=== PATIENT | male | born 1935 | race Caucasian/White ===

== ENCOUNTER → 2021-11-18 | Outpatient (CLI) | payer MEDICARE, OTHER ==
--- NOTE | 2021-11-18 08:48 | US ---
EXAMINATION TYPE: US kidneys/renal and bladder DATE OF EXAM: 11/18/2021 COMPARISON: NONE CLINICAL HISTORY: 86-year-old male I10 Htn N18.30 Chronic renal failure stage 3. TECHNIQUE: Multiple sonographic images of the kidneys and bladder are obtained. FINDINGS: EXAM MEASUREMENTS: Right Kidney: 9.0 x 4.7 x 4.6 cm Left Kidney: 9.7 x 4.5 x 4.5 cm Quality Assurance/R&D Lab Technician notes:technical limitations due to large amount of overlying bowel content Right Kidney: dilated collecting system Left Kidney: mild hydronephrosis Bladder: Prominent bladder wall trabeculations are noted. Small diverticula measuring up to 1.4 cm. P rostatomegaly up to 4.5 cm a prominent lobulated soft tissue impressing into the bladder base. Bilateral Jets seen: yes Incidental findin.6 cm gallstone. IMPRESSION: 1. Mild bilateral hydronephrosis, left greater than right. Correlate for possible etiology. Given pro statomegaly, consider BPH and bladder outlet obstruction. Both ureteral jets are visualized. 2. Trabeculated bladder wall and a small 1.4 cm bladder wall diverticulum. Findings suggest wall hype rtrophy from chronic bladder obstruction.
== END | disposition home or self-care (01) ==
LOC: RADUSWWP 07:59
PROVIDERS: ATTEND Family Medicine
DX: I12.9 Hypertensive chronic kidney disease with stage 1 through stage 4 chronic kidney disease, or unspecified chronic kidney disease (principal); N13.30 Unspecified hydronephrosis; N40.0 Benign prostatic hyperplasia without lower urinary tract symptoms; N32.89 Other specified disorders of bladder; N32.3 Diverticulum of bladder
CPT/HCPCS: 76770

== ENCOUNTER → 2021-12-16 | Outpatient (CLI) | payer MEDICARE, OTHER ==
[2021-12-16 09:44] LABS: Appearance,Urine Clear (Clear); Bilirubin,Urine Negative (Negative); Blood,Urine Negative (Negative); Color,Urine Yellow; Glucose,Urine (UA) Negative (Negative); Ketones,Urine Negative (Negative); Leukocyte Esterase,Urine Negative (Negative); Nitrite,Urine Negative (Negative); PH, Urine 6.5 (5.0-8.0); Protein,Urine Negative (Negative); Specific Gravity,Urine 1.018 (1.001-1.035); Urobilinogen,Urine <2.0 mg/dL (<2.0)
[2021-12-16 16:26] LABS: Basophils # (A) 0.06 X 10*3/uL (0.00-0.10); Basophils % (A) 0.8 %; Eosinophils # (A) 0.17 X 10*3/uL (0.04-0.35); Eosinophils % (A) 2.2 %; HCT 40.9 % (39.6-50.0); MCHC 31.8 g/dL (32.0-37.0); MCV 91.3 fL (80.0-97.0); Mean Platelet Volume 10.9 fL (9.5-12.2); Monocytes # (A) 0.93 X 10*3/uL (0.20-1.00); Monocytes % (A) 12.1 %; Neutrophils # (A) 5.16 X 10*3/uL (1.80-7.70); Neutrophils % (A) 67.4 %; Platelet Count 207 X 10*3/uL (140-440); RBC 4.48 X 10*6/uL (4.40-5.60); RDW 14.1 % (11.5-14.5); WBC 7.66 X 10*3/uL (4.50-10.00)
[2021-12-16 17:02] LABS: African American GFR (CKD) 44.5 (60.0-200.0); Albumin 4.1 g/dL (3.8-4.9); Albumin/Globulin Ratio 1.64 (1.60-3.17); Anion Gap 12.2 mmol/L (10.00-18.00); BUN/Creat Ratio 19.31 Ratio (12.00-20.00); Blood Urea Nitrogen 30.9 mg/dL (9.0-27.0); Calcium 9.6 mg/dL (8.7-10.3); Carbon Dioxide 24.8 mmol/L (20.0-27.5); Globulin 2.5 g/dL (1.6-3.3); Non-African American GFR(CKD) 38.4 (60.0-200.0); Phosphorus 3.4 mg/dL (2.4-5.1); Potassium 4.3 mmol/L (3.5-5.5); Total Bilirubin 0.5 mg/dL (0.30-1.20); Total Protein 6.6 g/dL (6.2-8.2)
== END | disposition home or self-care (01) ==
LOC: LABWHC1 08:32
PROVIDERS: ATTEND Nurse Practitioner Family
DX: N18.32 Chronic kidney disease, stage 3b (principal)
CPT/HCPCS: 36415; 80053; 81003; 84100; 85025

== ENCOUNTER → 2022-03-16 | Outpatient (CLI) | payer MEDICARE, OTHER ==
--- NOTE | 2022-03-16 16:40 | US ---
EXAMINATION TYPE: US kidneys/renal and bladder DATE OF EXAM: 03/16/2022 COMPARISON: Prior renal ultrasound November 18, 2021 CLINICAL HISTORY: N18.30 CKD STAGE 3. CKD 3 EXAM MEASUREMENTS: Right Kidney: 8.0 x 3.9 x 4.0 cm Left Kidney: 9.0 x 4.1 x 2.6 cm Right Kidney: No hydronephrosis or masses seen Left Kidney: No masses seen Bladder: Anechoic prominent prostate visualized. Bilateral Jets seen: No Mild to moderate Left-sided pyelocaliectasis on images saved. No nephrolithiasis is seen. No masses are identified. The urinary bladder is not greatly distended. Prominent prostate bulging on bladder base is noted. IMPRESSION: Suspect mild to moderate left-sided hydronephrosis. Consider follow-up imaging.
== END | disposition home or self-care (01) ==
LOC: RADUSWWP 15:42
PROVIDERS: ATTEND Internal Medicine Nephrology
DX: N18.30 Chronic kidney disease, stage 3 unspecified (principal)
CPT/HCPCS: 76770

== ENCOUNTER → 2022-05-01 | Outpatient (CLI) | payer MEDICARE, OTHER ==
--- NOTE | 2022-05-01 21:27 | CT ---
EXAMINATION TYPE: CT abdomen pelvis wo con DATE OF EXAM: 05/01/2022 COMPARISON: Ultrasound dated 03/16/2022 HISTORY: Stage [address] DLP: 596.2 mGycm Automated exposure control for dose reduction was used. TECHNIQUE: Helical acquisition of images was performed from the lung bases through the pelvis. FINDINGS: LUNG BASES: Loss of volume of the lower lobes with bilateral basal pulmonary peripheral reticulations and minimal fibrotic changes. Cardiomegaly. Mild coronary arterial atherosclerotic calcifications. LIVER/GB: No significant abnormality is appreciated. PANCREAS: No significant abnormality is seen. SPLEEN: No significant abnormality is seen. ADRENALS: No significant abnormality is seen. KIDNEYS: Suspected multiple variable sized bilateral renal cysts without gross suspicious feature, ma inly parapelvic in location. No definite suspicious renal lesion identified yet cannot be excluded by this nonenhanced CT scan. No hydroureter or hydronephrosis. FREE AIR: No free air is visualized RETROPERITONEAL ADENOPATHY: None visualized REPRODUCTIVE ORGANS: Enlarged prostate, please correlate with PSA level. Unremarkable seminal vesicle s. URINARY BLADDER: Trabeculated outline of the urinary bladder with left lateral wall diverticulum, pr obably representing sequela of chronic urinary outflow obstruction. PELVIC ADENOPATHY: No pathologically enlarged pelvic lymph nodes. OSSEOUS STRUCTURES: Degenerative changes of the lower thoracic and lumbar spine. Suspected chronic h ealed fracture of the sternal body. BOWEL: Uncomplicated colonic diverticulosis mainly involving the sigmoid colon and descending colon. OTHER: Arterial atherosclerotic calcifications. No sizable ascites. IMPRESSION: Enlarged prostate with signs of chronic urinary outflow obstruction as described above. Bilateral par apelvic renal cysts rather than dilated renal collecting system. No hydroureter bilaterally. Further renal scintigraphy can be considered if clinically required. Other incidental findings as described carolynn mccullough.
== END | disposition home or self-care (01) ==
LOC: RADCTMAIN 14:11
PROVIDERS: ATTEND Urology
DX: N18.30 Chronic kidney disease, stage 3 unspecified (principal); N40.0 Benign prostatic hyperplasia without lower urinary tract symptoms; N28.1 Cyst of kidney, acquired
CPT/HCPCS: 74176